=== PATIENT | female | born 1940 | race Two or more races ===

== ENCOUNTER 2017-08-16 17:20 | Inpatient (IN) | payer MEDICARE ==
[~2017-08-16] VITALS: Ht 157.5 cm; Wt 70.3 kg
[~2017-08-16 17:20] MED LIST: ALEN70TA46 PO; AMLO10TA80 PO; BENA20TA3 PO; CHOL400T15 PO
[2017-08-16 17:30] VITALS: BP 126/69
[2017-08-16] MEDS ORDERED: METHYLPREDNISOLONE SOD SUCC 40 MG/ML VIAL IV NR (18:30)
[2017-08-16] MEDS ORDERED: ALPRAZOLAM 0.5 MG TABLET PO PRN (18:30)
[2017-08-16] MEDS ORDERED: IPRATROPIUM/ALBUTEROL 0.5-3(2.5)MG/3ML NEB HHN PRN (18:30)
[2017-08-16] MEDS ORDERED: CLONIDINE 0.1MG TABLET PO PRN (18:30)
[2017-08-16] MEDS ORDERED: ACETAMINOPHEN 325MG TABLET PO PRN (18:30)
[2017-08-16 20:00] VITALS: BP 118/72
[2017-08-16] MEDS: FAMOTIDINE 20MG TABLET PO SCH (20:18)
[2017-08-16] MEDS: IPRATROPIUM/ALBUTEROL 0.5-3(2.5)MG/3ML NEB HHN SCH (21:13)
[2017-08-16] MEDS: BUDESONIDE 0.5MG/2ML NEB HHN SCH (21:13)
[2017-08-16] MEDS ORDERED: AMLO2.5T45 PO (22:21)
[2017-08-16] MEDS ORDERED: CHOL100046 PO (22:21)
[2017-08-17] MEDS: IPRATROPIUM/ALBUTEROL 0.5-3(2.5)MG/3ML NEB HHN SCH ×7 (04:00→23:18)
[2017-08-17 06:38] LABS: HEMATOCRIT. 31.2 % (36.0-48.0); HEMOGLOBIN. 9.9 g/dL (12.0-16.0); MEAN CORPUSCULAR HEMOGLOBIN 22.6 pg (28.0-32.0); MEAN CORPUSCULAR VOLUME 71.2 fL (81.0-99.0); MEAN PLATELET VOLUME 8.8 fl (7.4-10.4); PLATELET 293 x1000/uL (130-400); RED BLOOD CELL COUNT 4.38 mill/uL (4.2-5.4); RED CELL DISTRIBUTION WIDTH 15.9 % (11.6-14.6)
[2017-08-17] MEDS: BUDESONIDE 0.5MG/2ML NEB HHN SCH ×2 (07:47→20:44)
[2017-08-17 08:07] VITALS: BP 122/75
[2017-08-17] MEDS: DOCUSATE SODIUM 100MG CAPSULE PO SCH (08:19)
[2017-08-17 08:50] LABS: CHLORIDE 102 mEq/L (98-107)
[2017-08-17 08:58] LABS: PREALBUMIN 23.2 mg/dL (20.0-40.0)
[2017-08-17] MEDS: BENAZEPRIL 20MG TABLET PO SCH (09:00)
[2017-08-17] MEDS: FAMOTIDINE 20MG TABLET PO SCH ×2 (09:00→20:57)
[2017-08-17] MEDS: ENOXAPARIN 40MG/0.4ML SYR SUBCUT SCH (09:00)
[2017-08-17] MEDS: AMLODIPINE 10MG TABLET PO SCH (09:00)
[2017-08-17] MEDS: PREDNISONE 20MG TABLET PO SCH (09:00)
[2017-08-17 10:23] LABS: PLATELET ESTIMATE NORMAL
[2017-08-17 17:50] LABS: CLARITY URINE CLEAR (CLEAR); COLOR URINE YELLOW (YELLOW); KETONES URINE NEGATIVE (NEGATIVE); LEUKOCYTE ESTERASE URINE 1+ (NEGATIVE); NITRITE URINE NEGATIVE (NEGATIVE); OCCULT BLOOD URINE NEGATIVE (NEGATIVE); PROTEIN URINE NEGATIVE (NEGATIVE); SPECIFIC GRAVITY URINE 1.012 (1.005-1.030); UROBILINOGEN URINE 0.2 E.U./dL (0.2-1.0)
[2017-08-17 20:00] VITALS: BP 135/69
[2017-08-18] MEDS: IPRATROPIUM/ALBUTEROL 0.5-3(2.5)MG/3ML NEB HHN SCH ×4 (03:56→21:21)
[2017-08-18] MEDS: BUDESONIDE 0.5MG/2ML NEB HHN SCH ×2 (07:20→21:20)
[2017-08-18 08:00] VITALS: BP 158/81
[2017-08-18] MEDS: DOCUSATE SODIUM 100MG CAPSULE PO SCH (08:59)
[2017-08-18] MEDS: PREDNISONE 20MG TABLET PO SCH (08:59)
[2017-08-18] MEDS: BENAZEPRIL 20MG TABLET PO SCH (09:00)
[2017-08-18] MEDS: AMLODIPINE 10MG TABLET PO SCH (09:01)
[2017-08-18] MEDS: FAMOTIDINE 20MG TABLET PO SCH ×2 (09:01→21:02)
[2017-08-18] MEDS: ENOXAPARIN 40MG/0.4ML SYR SUBCUT SCH (09:02)
[2017-08-18 20:00] VITALS: BP 109/59
[2017-08-19] MEDS: IPRATROPIUM/ALBUTEROL 0.5-3(2.5)MG/3ML NEB HHN SCH ×6 (01:00→21:58)
[2017-08-19 06:51] LABS: BASOPHILS % 0.1 % (0.0-2.0); EOSINOPHILS % 1.5 % (0.0-5.0); HEMATOCRIT. 31.3 % (36.0-48.0); HEMOGLOBIN. 9.9 g/dL (12.0-16.0); LYMPHOCYTES % 7.7 % (20.0-50.0); MEAN CORPUSCULAR HEMOGLOBIN 22.7 pg (28.0-32.0); MEAN CORPUSCULAR VOLUME 71.7 fL (81.0-99.0); MEAN PLATELET VOLUME 8.5 fl (7.4-10.4); MONOCYTES % 4.4 % (2.0-8.0); NEUTROPHILS % 86.3 % (40.0-76.0); PLATELET 257 x1000/uL (130-400); RED BLOOD CELL COUNT 4.37 mill/uL (4.2-5.4); RED CELL DISTRIBUTION WIDTH 16.6 % (11.6-14.6)
[2017-08-19 07:23] LABS: CHLORIDE 104 mEq/L (98-107)
[2017-08-19 07:39] LABS: PHOSPHORUS 2.7 mg/dL (2.5-4.9); TOTAL IRON BINDING CAPACITY 158 ug/dL (250-450)
[2017-08-19] MEDS: BUDESONIDE 0.5MG/2ML NEB HHN SCH (07:52)
[2017-08-19 08:08] VITALS: BP 126/60
[2017-08-19] MEDS: PREDNISONE 20MG TABLET PO SCH (08:23)
[2017-08-19] MEDS: BENAZEPRIL 20MG TABLET PO SCH (08:24)
[2017-08-19] MEDS: FAMOTIDINE 20MG TABLET PO SCH ×2 (08:24→21:23)
[2017-08-19] MEDS: DOCUSATE SODIUM 100MG CAPSULE PO SCH (08:24)
[2017-08-19] MEDS: AMLODIPINE 10MG TABLET PO SCH (08:24)
[2017-08-19] MEDS: ENOXAPARIN 40MG/0.4ML SYR SUBCUT SCH (08:25)
[2017-08-19 15:19] LABS: FOLIC ACID (FOLATE) SERUM 9.9 ng/mL (>5.38)
[2017-08-20] MEDS: IPRATROPIUM/ALBUTEROL 0.5-3(2.5)MG/3ML NEB HHN SCH ×6 (01:09→21:41)
[2017-08-20 08:00] VITALS: BP 107/48
[2017-08-20] MEDS: FAMOTIDINE 20MG TABLET PO SCH ×2 (08:15→20:22)
[2017-08-20] MEDS: PREDNISONE 20MG TABLET PO SCH (08:15)
[2017-08-20] MEDS: DOCUSATE SODIUM 100MG CAPSULE PO SCH (08:15)
[2017-08-20] MEDS: ENOXAPARIN 40MG/0.4ML SYR SUBCUT SCH (08:15)
[2017-08-20] MEDS: BENAZEPRIL 20MG TABLET PO SCH (08:20)
[2017-08-20] MEDS: AMLODIPINE 10MG TABLET PO SCH (08:21)
[2017-08-20] MEDS: BUDESONIDE 0.5MG/2ML NEB HHN SCH ×2 (09:37→21:40)
[2017-08-20] MEDS ORDERED: POTASSIUM CHLORIDE 20MEQ TABLET SR PO SCH (10:30)
[2017-08-20 20:36] VITALS: BP 102/50
[2017-08-21] MEDS: IPRATROPIUM/ALBUTEROL 0.5-3(2.5)MG/3ML NEB HHN SCH ×5 (03:50→20:51)
[2017-08-21 07:04] LABS: BASOPHILS % 0.6 % (0.0-2.0); EOSINOPHILS % 2.4 % (0.0-5.0); HEMOGLOBIN. 9.6 g/dL (12.0-16.0); LYMPHOCYTES % 9.7 % (20.0-50.0); MEAN CORPUSCULAR HEMOGLOBIN 22.4 pg (28.0-32.0); MEAN PLATELET VOLUME 8.4 fl (7.4-10.4); MONOCYTES % 5.1 % (2.0-8.0); NEUTROPHILS % 82.2 % (40.0-76.0); PLATELET 232 x1000/uL (130-400); RED CELL DISTRIBUTION WIDTH 16.5 % (11.6-14.6)
[2017-08-21] MEDS: BUDESONIDE 0.5MG/2ML NEB HHN SCH ×2 (07:13→20:52)
[2017-08-21 07:33] LABS: CHLORIDE 106 mEq/L (98-107)
[2017-08-21 08:00] VITALS: BP 134/61
[2017-08-21] MEDS: DOCUSATE SODIUM 100MG CAPSULE PO SCH (09:48)
[2017-08-21] MEDS: PREDNISONE 20MG TABLET PO SCH (09:48)
[2017-08-21] MEDS: FAMOTIDINE 20MG TABLET PO SCH ×2 (09:48→21:42)
[2017-08-21] MEDS: BENAZEPRIL 20MG TABLET PO SCH (09:50)
[2017-08-21] MEDS: ENOXAPARIN 40MG/0.4ML SYR SUBCUT SCH (09:50)
[2017-08-21] MEDS: AMLODIPINE 10MG TABLET PO SCH (09:51)
[2017-08-21 20:00] VITALS: BP 100/52
[2017-08-22] MEDS: IPRATROPIUM/ALBUTEROL 0.5-3(2.5)MG/3ML NEB HHN SCH ×6 (01:02→21:21)
[2017-08-22 08:00] VITALS: BP 109/56
[2017-08-22] MEDS: PREDNISONE 20MG TABLET PO SCH (08:40)
[2017-08-22] MEDS: BENAZEPRIL 20MG TABLET PO SCH (08:40)
[2017-08-22] MEDS: ENOXAPARIN 40MG/0.4ML SYR SUBCUT SCH (08:40)
[2017-08-22] MEDS: AMLODIPINE 10MG TABLET PO SCH (08:40)
[2017-08-22] MEDS: DOCUSATE SODIUM 100MG CAPSULE PO SCH (08:40)
[2017-08-22] MEDS: FAMOTIDINE 20MG TABLET PO SCH ×2 (08:40→20:56)
[2017-08-22] MEDS: BUDESONIDE 0.5MG/2ML NEB HHN SCH ×2 (11:48→21:21)
[2017-08-22 20:00] VITALS: BP 150/72
[2017-08-23] MEDS: IPRATROPIUM/ALBUTEROL 0.5-3(2.5)MG/3ML NEB HHN SCH ×5 (01:00→20:25)
[2017-08-23 06:43] LABS: BASOPHILS % 0.5 % (0.0-2.0); EOSINOPHILS % 2.7 % (0.0-5.0); HEMATOCRIT. 28.3 % (36.0-48.0); HEMOGLOBIN. 8.9 g/dL (12.0-16.0); LYMPHOCYTES % 12.4 % (20.0-50.0); MEAN CORPUSCULAR HEMOGLOBIN 22.9 pg (28.0-32.0); MEAN CORPUSCULAR VOLUME 72.4 fL (81.0-99.0); MEAN PLATELET VOLUME 8.8 fl (7.4-10.4); MONOCYTES % 5.4 % (2.0-8.0); PLATELET 190 x1000/uL (130-400); RED CELL DISTRIBUTION WIDTH 17.5 % (11.6-14.6)
[2017-08-23 07:50] LABS: CHLORIDE 105 mEq/L (98-107)
[2017-08-23 08:00] VITALS: BP 124/69
[2017-08-23] MEDS: DOCUSATE SODIUM 100MG CAPSULE PO SCH (08:35)
[2017-08-23] MEDS: PREDNISONE 20MG TABLET PO SCH (08:35)
[2017-08-23] MEDS: FAMOTIDINE 20MG TABLET PO SCH ×2 (08:35→21:33)
[2017-08-23] MEDS: BENAZEPRIL 20MG TABLET PO SCH (08:35)
[2017-08-23] MEDS: AMLODIPINE 10MG TABLET PO SCH (08:35)
[2017-08-23] MEDS: ENOXAPARIN 40MG/0.4ML SYR SUBCUT SCH (08:36)
[2017-08-23 10:11] LABS: 25-HYDROXY VITAMIN D3 18 ng/mL (.)
[2017-08-23] MEDS: BUDESONIDE 0.5MG/2ML NEB HHN SCH ×2 (11:22→20:25)
[2017-08-23] MEDS ORDERED: ERGOCALCIFEROL 50000UNITS CAPSULE PO SCH (16:30)
[2017-08-23 20:00] VITALS: BP 114/57
[2017-08-24] MEDS: IPRATROPIUM/ALBUTEROL 0.5-3(2.5)MG/3ML NEB HHN SCH ×6 (00:19→21:20)
[2017-08-24] MEDS: BUDESONIDE 0.5MG/2ML NEB HHN SCH ×2 (07:35→21:20)
[2017-08-24 08:00] VITALS: BP 133/78
[2017-08-24] MEDS: PREDNISONE 20MG TABLET PO SCH (08:26)
[2017-08-24] MEDS: DOCUSATE SODIUM 100MG CAPSULE PO SCH (08:26)
[2017-08-24] MEDS: ENOXAPARIN 40MG/0.4ML SYR SUBCUT SCH (08:27)
[2017-08-24] MEDS: BENAZEPRIL 20MG TABLET PO SCH (08:27)
[2017-08-24] MEDS: AMLODIPINE 10MG TABLET PO SCH (08:27)
[2017-08-24] MEDS: FAMOTIDINE 20MG TABLET PO SCH ×2 (08:27→20:33)
[2017-08-24 20:00] VITALS: BP 110/61
[2017-08-25] MEDS: IPRATROPIUM/ALBUTEROL 0.5-3(2.5)MG/3ML NEB HHN SCH ×6 (00:01→21:50)
[2017-08-25] MEDS: BUDESONIDE 0.5MG/2ML NEB HHN SCH ×2 (07:07→21:51)
[2017-08-25 08:00] VITALS: BP 119/66
[2017-08-25] MEDS: DOCUSATE SODIUM 100MG CAPSULE PO SCH (09:10)
[2017-08-25] MEDS: AMLODIPINE 10MG TABLET PO SCH (09:10)
[2017-08-25] MEDS: PREDNISONE 20MG TABLET PO SCH (09:10)
[2017-08-25] MEDS: FAMOTIDINE 20MG TABLET PO SCH ×2 (09:10→21:20)
[2017-08-25] MEDS: ENOXAPARIN 40MG/0.4ML SYR SUBCUT SCH (09:11)
[2017-08-25] MEDS: BENAZEPRIL 20MG TABLET PO SCH (09:11)
[2017-08-25 20:00] VITALS: BP 110/52
[2017-08-26] MEDS: IPRATROPIUM/ALBUTEROL 0.5-3(2.5)MG/3ML NEB HHN SCH ×7 (01:12→23:35)
[2017-08-26 08:02] VITALS: BP 106/54
[2017-08-26 08:19] LABS: BASOPHILS % 0.7 % (0.0-2.0); EOSINOPHILS % 2.5 % (0.0-5.0); HEMOGLOBIN. 8.7 g/dL (12.0-16.0); LYMPHOCYTES % 18.5 % (20.0-50.0); MEAN CORPUSCULAR HEMOGLOBIN 22.6 pg (28.0-32.0); MEAN CORPUSCULAR VOLUME 72.1 fL (81.0-99.0); MEAN PLATELET VOLUME 8.4 fl (7.4-10.4); MONOCYTES % 6.5 % (2.0-8.0); NEUTROPHILS % 71.8 % (40.0-76.0); PLATELET 182 x1000/uL (130-400); RED BLOOD CELL COUNT 3.88 mill/uL (4.2-5.4); RED CELL DISTRIBUTION WIDTH 17.5 % (11.6-14.6)
[2017-08-26] MEDS: DOCUSATE SODIUM 100MG CAPSULE PO SCH (08:49)
[2017-08-26] MEDS: FAMOTIDINE 20MG TABLET PO SCH ×2 (08:49→20:05)
[2017-08-26] MEDS: PREDNISONE 10MG TABLET PO SCH (08:49)
[2017-08-26] MEDS: ENOXAPARIN 40MG/0.4ML SYR SUBCUT SCH (08:50)
[2017-08-26] MEDS: BUDESONIDE 0.5MG/2ML NEB HHN SCH ×2 (08:59→19:49)
[2017-08-26] MEDS: BENAZEPRIL 20MG TABLET PO SCH (09:00)
[2017-08-26] MEDS: AMLODIPINE 10MG TABLET PO SCH (09:00)
[2017-08-26 09:02] LABS: CHLORIDE 103 mEq/L (98-107)
[2017-08-26 19:56] VITALS: BP 115/66
[2017-08-27] MEDS: IPRATROPIUM/ALBUTEROL 0.5-3(2.5)MG/3ML NEB HHN SCH ×5 (03:52→21:17)
[2017-08-27 06:58] LABS: BASOPHILS % 0.6 % (0.0-2.0); EOSINOPHILS % 2.4 % (0.0-5.0); HEMATOCRIT. 30.2 % (36.0-48.0); HEMOGLOBIN. 9.4 g/dL (12.0-16.0); LYMPHOCYTES % 23.3 % (20.0-50.0); MEAN CORPUSCULAR HEMOGLOBIN 22.6 pg (28.0-32.0); MEAN CORPUSCULAR VOLUME 72.5 fL (81.0-99.0); MEAN PLATELET VOLUME 8.7 fl (7.4-10.4); NEUTROPHILS % 67.7 % (40.0-76.0); PLATELET 187 x1000/uL (130-400); RED BLOOD CELL COUNT 4.17 mill/uL (4.2-5.4); RED CELL DISTRIBUTION WIDTH 17.9 % (11.6-14.6)
[2017-08-27 07:56] VITALS: BP 114/54
[2017-08-27 08:09] LABS: CHLORIDE 101 mEq/L (98-107)
[2017-08-27] MEDS: ENOXAPARIN 40MG/0.4ML SYR SUBCUT SCH (08:17)
[2017-08-27] MEDS: AMLODIPINE 10MG TABLET PO SCH (08:17)
[2017-08-27] MEDS: FAMOTIDINE 20MG TABLET PO SCH ×2 (08:17→21:01)
[2017-08-27] MEDS: DOCUSATE SODIUM 100MG CAPSULE PO SCH (08:17)
[2017-08-27] MEDS: PREDNISONE 10MG TABLET PO SCH (08:17)
[2017-08-27] MEDS: BENAZEPRIL 20MG TABLET PO SCH (08:18)
[2017-08-27] MEDS: BUDESONIDE 0.5MG/2ML NEB HHN SCH ×2 (09:30→21:17)
[2017-08-27 20:00] VITALS: BP 127/75
[2017-08-28] MEDS: IPRATROPIUM/ALBUTEROL 0.5-3(2.5)MG/3ML NEB HHN SCH ×7 (00:31→23:47)
[2017-08-28 07:00] VITALS: BP 126/73
[2017-08-28] MEDS: BUDESONIDE 0.5MG/2ML NEB HHN SCH ×2 (08:12→19:57)
[2017-08-28] MEDS: DOCUSATE SODIUM 100MG CAPSULE PO SCH (08:55)
[2017-08-28] MEDS: ENOXAPARIN 40MG/0.4ML SYR SUBCUT SCH (08:55)
[2017-08-28] MEDS: BENAZEPRIL 20MG TABLET PO SCH (08:55)
[2017-08-28] MEDS: AMLODIPINE 10MG TABLET PO SCH (08:56)
[2017-08-28] MEDS: FAMOTIDINE 20MG TABLET PO SCH ×2 (08:56→21:04)
[2017-08-28 20:00] VITALS: BP 119/69
[2017-08-29] MEDS: IPRATROPIUM/ALBUTEROL 0.5-3(2.5)MG/3ML NEB HHN SCH ×3 (04:58→11:53)
[2017-08-29 07:00] VITALS: BP 127/74
[2017-08-29] MEDS: BUDESONIDE 0.5MG/2ML NEB HHN SCH (07:38)
[2017-08-29] MEDS: DOCUSATE SODIUM 100MG CAPSULE PO SCH (08:47)
[2017-08-29] MEDS: BENAZEPRIL 20MG TABLET PO SCH (08:47)
[2017-08-29] MEDS: ENOXAPARIN 40MG/0.4ML SYR SUBCUT SCH (08:47)
[2017-08-29] MEDS: FAMOTIDINE 20MG TABLET PO SCH (08:47)
[2017-08-29] MEDS: AMLODIPINE 10MG TABLET PO SCH (08:48)
[2017-08-29 11:23] VITALS: BP 111/72
[2017-08-29 11:24] VITALS: BP 111/72
== END 2017-08-29 16:00 | disposition home health service (06) | DRG 70 ==
PROVIDERS: ADMIT Physical Medicine & Rehabilitation Spinal Cord Injury Medicine; ATTEND Internal Medicine
DX: G93.40 Encephalopathy, unspecified (principal); A41.52 Sepsis due to Pseudomonas; J96.90 Respiratory failure, unspecified, unspecified whether with hypoxia or hypercapnia; J18.9 Pneumonia, unspecified organism; J44.1 Chronic obstructive pulmonary disease with (acute) exacerbation; E44.0 Moderate protein-calorie malnutrition; E87.0 Hyperosmolality and hypernatremia; J45.901 Unspecified asthma with (acute) exacerbation; K56.7 Ileus, unspecified; Z99.81 Dependence on supplemental oxygen; D64.9 Anemia, unspecified; E05.00 Thyrotoxicosis with diffuse goiter without thyrotoxic crisis or storm; D72.829 Elevated white blood cell count, unspecified; R41.3 Other amnesia; R26.9 Unspecified abnormalities of gait and mobility; Z87.891 Personal history of nicotine dependence; Z68.28 Body mass index [BMI] 28.0-28.9, adult; Z82.0 Family history of epilepsy and other diseases of the nervous system; R53.81 Other malaise; F41.9 Anxiety disorder, unspecified; I10 Essential (primary) hypertension; E55.9 Vitamin D deficiency, unspecified; F32.9 Major depressive disorder, single episode, unspecified; F06.31 Mood disorder due to known physiological condition with depressive features
CPT/HCPCS: 36415; 80048; 80053; 81003; 82270; 82306; 82607; 82728; 82746; 83540; 83550; 83735; 84100; 84134; 84443; 84630; 85025; 87086; 92523; 92610; 93970; 94618; 94640; 97110; 97112; 97116; 97162; 97166; 97530; 97535; G0515; J1650; J2920; J7512; J7620; J7626

== ENCOUNTER 2019-12-22 14:32 | Inpatient (IN) | payer MEDICARE ==
[~2019-12-22] VITALS: Ht 157.5 cm; Wt 49.0 kg
[~2019-12-22 14:32] MED LIST changes: -ALEN70TA46 PO; -AMLO10TA80 PO; +AMLO2.5T45 PO; -BENA20TA3 PO; +CHOL100046 PO; -CHOL400T15 PO
[2019-12-22] MEDS ORDERED: METHYLPREDNISOLONE SOD SUCC 125 MG/2 ML VIAL IV STA (14:39)
[2019-12-22] MEDS ORDERED: IPRATROPIUM BROMIDE (0.02%) 0.5MG/2.5ML NEB HHN STA (14:39)
[2019-12-22] MEDS ORDERED: MAGNESIUM 2 G PREMIX 50 ML IV ONE (14:45)
[2019-12-22] MEDS: ALBUTEROL (0.083%) 2.5MG/3ML NEB HHN SCH ×3 (14:50→16:10)
[2019-12-22 15:05] LABS: BG BASE EXCESS 15.6 mmol/L (-2.0-2.0); BG BILEVEL POS AIRWAY PRESSURE 15/5; BG CARBOXYHEMOGLOBIN 0.1 % (0.5-1.5); BG DEOXYHEMOGLOBIN 1.2 % (0.0-5.0); BG HCO3 ACT 47.4 mmol/L (22.0-26.0); BG METHEMOGLOBIN 0.3 % (0.0-1.5); BG OXYGEN SATURATION 98.8 % (92.0-98.5); BG OXYHEMOGLOBIN 98.4 % (94.0-97.0); BG PCO2 124.7 mmHg (35.0-45.0); BG PH 7.198 (7.350-7.450); BG PO2 160.7 mmHg (75.0-100.0); BG SAMPLE SITE RIGHT BRACHIAL; BG TOTAL HEMOGLOBIN 10.1 g/dL (12.0-18.0); BG VENT MODE MASK - BIPAP; BG VENT RATE 16 set
[2019-12-22 15:40] LABS: BASOPHILS % 0.6 % (0.0-2.0); EOSINOPHILS % 0.1 % (0.0-5.0); HEMATOCRIT. 31.2 % (36.0-48.0); HEMOGLOBIN. 9.5 g/dL (12.0-16.0); LYMPHOCYTES % 12.9 % (20.0-50.0); MEAN CORPUSCULAR HEMOGLOBIN 23.3 pg (28.0-32.0); MEAN CORPUSCULAR VOLUME 76.8 fL (81.0-99.0); MEAN PLATELET VOLUME 8.7 fl (7.4-10.4); MONOCYTES % 3.5 % (2.0-8.0); NEUTROPHILS % 82.9 % (40.0-76.0); PLATELET 159 x1000/uL (130-400); RED BLOOD CELL COUNT 4.07 mill/uL (4.2-5.4); RED CELL DISTRIBUTION WIDTH 17.6 % (11.6-14.6)
[2019-12-22 15:43] LABS: CHLORIDE 108 mEq/L (98-107)
[2019-12-22 15:47] LABS: PROTHROMBIN TIME 10.5 sec (9.6-11.0)
[2019-12-22] MEDS ORDERED: AZITHROMYCIN 500 MG in DEXT 5% WATER 250 ML IV SCH (16:15)
[2019-12-22] MEDS ORDERED: PIPERACILLIN/TAZ 3.375G PREMIX 50 ML IV ONE (16:15)
[2019-12-22] MEDS ORDERED: VANCOMYCIN 1 G PREMIX 200 ML IV SCH (16:15)
[2019-12-22 17:45] LABS: BG BASE EXCESS 12.7 mmol/L (-2.0-2.0); BG BILEVEL POS AIRWAY PRESSURE 20/5; BG CARBOXYHEMOGLOBIN 0.3 % (0.5-1.5); BG DEOXYHEMOGLOBIN 11.2 % (0.0-5.0); BG METHEMOGLOBIN 0.2 % (0.0-1.5); BG OXYGEN SATURATION 88.7 % (92.0-98.5); BG OXYHEMOGLOBIN 88.3 % (94.0-97.0); BG PCO2 90.9 mmHg (35.0-45.0); BG PH 7.283 (7.350-7.450); BG PO2 58.4 mmHg (75.0-100.0); BG SAMPLE SITE LEFT RADIAL; BG TOTAL HEMOGLOBIN 9.9 g/dL (12.0-18.0); BG VENT MODE MASK - BIPAP; BG VENT RATE 20 set
[2019-12-22 19:00] VITALS: BP 138/88
[2019-12-22 20:00] VITALS: BP_SYST 99; BP_DIAS 59; BP_DIAS 62
[2019-12-22] MEDS ORDERED: PIPERACILLIN/TAZ 3.375G PREMIX 50 ML IV SCH (20:15)
[2019-12-22] MEDS ORDERED: CLONIDINE 0.1MG TABLET PO PRN (20:15)
[2019-12-22] MEDS ORDERED: MAGNESIUM/ALUMINUM HYDROXIDE/SIMETHICONE 30ML UDC PO PRN (20:15)
[2019-12-22] MEDS ORDERED: MAGNESIUM HYDROXIDE 400MG/5ML 30ML UDC PO PRN (20:15)
[2019-12-22] MEDS ORDERED: ACETAMINOPHEN 325MG TABLET PO PRN ×2 (20:15)
[2019-12-22] MEDS ORDERED: HYDRALAZINE 20MG/ML VIAL IV PRN (20:15)
[2019-12-22] MEDS ORDERED: GUAIFENESIN 200MG/10ML SUGAR FREE UDC PO PRN (20:15)
[2019-12-22 21:00] VITALS: BP 99/56
[2019-12-22] MEDS: FAMOTIDINE 20MG/2ML VIAL IV SCH (21:00)
[2019-12-22] MEDS: IPRATROPIUM/ALBUTEROL 0.5-3(2.5)MG/3ML NEB HHN SCH (21:53)
[2019-12-22 22:00] VITALS: BP 118/73
[2019-12-22] MEDS: METHYLPREDNISOLONE SOD SUCC 125 MG/2 ML VIAL IV SCH (22:11)
[2019-12-22 22:51] LABS: BG BASE EXCESS 11.6 mmol/L (-2.0-2.0); BG BILEVEL POS AIRWAY PRESSURE 15/20; BG CARBOXYHEMOGLOBIN 0.3 % (0.5-1.5); BG FRACTION INSPIRED OXYGEN 40; BG HCO3 ACT 39.3 mmol/L (22.0-26.0); BG METHEMOGLOBIN 0.4 % (0.0-1.5); BG OXYHEMOGLOBIN 98.3 % (94.0-97.0); BG PH 7.337 (7.350-7.450); BG SAMPLE SITE RIGHT RADIAL; BG TOTAL HEMOGLOBIN 8.9 g/dL (12.0-18.0); BG VENT MODE MASK - BIPAP; BG VENT RATE 20 set
[2019-12-22 23:00] VITALS: BP 106/64
[2019-12-22 23:57] VITALS: BP 125/82
[2019-12-23] VITALS (13 sets, daily range): BP systolic 101–167; BP diastolic 34–104
[2019-12-23] MEDS ORDERED: TEMAZEPAM 15MG CAPSULE PO PRN
[2019-12-23] MEDS: DEXT 5% WATER + KCL 20MEQ/L 1,000 ML IV SCH ×3 (00:01→22:59)
[2019-12-23] MEDS: IPRATROPIUM/ALBUTEROL 0.5-3(2.5)MG/3ML NEB HHN SCH ×6 (01:22→20:42)
[2019-12-23] MEDS: PIPERACILLIN/TAZOBACTAM 3.375 G in DEXT 5% WATER 100 ML IV SCH ×3 (05:38→21:42)
[2019-12-23] MEDS: METHYLPREDNISOLONE SOD SUCC 125 MG/2 ML VIAL IV SCH ×3 (05:39→21:41)
[2019-12-23 07:03] LABS: BASOPHILS % 0.2 % (0.0-2.0); HEMATOCRIT. 27.9 % (36.0-48.0); HEMOGLOBIN. 8.7 g/dL (12.0-16.0); LYMPHOCYTES % 9.3 % (20.0-50.0); MEAN CORPUSCULAR HEMOGLOBIN 23.4 pg (28.0-32.0); MEAN PLATELET VOLUME 9.4 fl (7.4-10.4); MONOCYTES % 2.7 % (2.0-8.0); NEUTROPHILS % 87.8 % (40.0-76.0); PLATELET 162 x1000/uL (130-400); RED BLOOD CELL COUNT 3.72 mill/uL (4.2-5.4); RED CELL DISTRIBUTION WIDTH 17.5 % (11.6-14.6)
[2019-12-23 07:40] LABS: CHLORIDE 102 mEq/L (98-107)
[2019-12-23 07:46] LABS: PHOSPHORUS 3.1 mg/dL (2.5-4.9)
[2019-12-23] MEDS: FAMOTIDINE 20MG/2ML VIAL IV SCH ×2 (08:18→21:41)
[2019-12-23] MEDS: ENOXAPARIN 40MG/0.4ML SYR SUBCUT SCH (08:18)
[2019-12-23 09:21] LABS: BG BASE EXCESS 10.9 mmol/L (-2.0-2.0); BG BILEVEL POS AIRWAY PRESSURE ST=15/5; BG CARBOXYHEMOGLOBIN 0.2 % (0.5-1.5); BG FRACTION INSPIRED OXYGEN 35; BG HCO3 ACT 38.2 mmol/L (22.0-26.0); BG METHEMOGLOBIN 0.3 % (0.0-1.5); BG OXYHEMOGLOBIN 95.5 % (94.0-97.0); BG PCO2 68.3 mmHg (35.0-45.0); BG PH 7.365 (7.350-7.450); BG PO2 80.5 mmHg (75.0-100.0); BG PRESSURE SUPPORT 10; BG SAMPLE SITE RIGHT RADIAL; BG TOTAL HEMOGLOBIN 9.6 g/dL (12.0-18.0); BG VENT MODE MASK - BIPAP; BG VENT RATE 20 set
[2019-12-23 17:51] LABS: T4 FREE 0.78 ng/dL (0.76-1.46)
[2019-12-23] MEDS: DILTIAZEM HCL 60MG TABLET PO SCH (21:42)
[2019-12-23] MEDS: ONDANSETRON HCL 4MG/2ML INJ IV PRN (23:52)
[2019-12-23] MEDS: DIPHENHYDRAMINE 50MG/ML VIAL IV PRN (23:52)
[2019-12-24] VITALS (13 sets, daily range): BP systolic 106–166; BP diastolic 49–104
[2019-12-24] MEDS: IPRATROPIUM/ALBUTEROL 0.5-3(2.5)MG/3ML NEB HHN SCH ×5 (00:39→15:44)
[2019-12-24] MEDS: PIPERACILLIN/TAZOBACTAM 3.375 G in DEXT 5% WATER 100 ML IV SCH ×3 (05:24→21:34)
[2019-12-24] MEDS: METHYLPREDNISOLONE SOD SUCC 125 MG/2 ML VIAL IV SCH ×2 (05:24→13:12)
[2019-12-24] MEDS: DILTIAZEM HCL 60MG TABLET PO SCH ×3 (05:25→21:33)
[2019-12-24] MEDS: FAMOTIDINE 20MG/2ML VIAL IV SCH (08:56)
[2019-12-24] MEDS: ENOXAPARIN 40MG/0.4ML SYR SUBCUT SCH (08:57)
[2019-12-24] MEDS ORDERED: ALPRAZOLAM 0.25 MG TABLET PO PRN (09:30)
[2019-12-24] MEDS: METHYLPREDNISOLONE SOD SUCC 40 MG/ML VIAL IV SCH (17:52)
[2019-12-24] MEDS: OMEPRAZOLE 20MG CAPSULE EXTENDED RELEASE PO SCH (21:30)
[2019-12-25] VITALS (12 sets, daily range): BP systolic 107–148; BP diastolic 48–101
[2019-12-25] MEDS: IPRATROPIUM/ALBUTEROL 0.5-3(2.5)MG/3ML NEB HHN SCH ×8 (00:06→23:31)
[2019-12-25] MEDS: DILTIAZEM HCL 60MG TABLET PO SCH ×2 (06:00→13:10)
[2019-12-25] MEDS: PIPERACILLIN/TAZOBACTAM 3.375 G in DEXT 5% WATER 100 ML IV SCH ×2 (06:25→13:09)
[2019-12-25] MEDS: METHYLPREDNISOLONE SOD SUCC 40 MG/ML VIAL IV SCH ×2 (08:21→17:52)
[2019-12-25] MEDS: ENOXAPARIN 40MG/0.4ML SYR SUBCUT SCH (08:21)
[2019-12-25] MEDS: OMEPRAZOLE 20MG CAPSULE EXTENDED RELEASE PO SCH (08:22)
[2019-12-25] MEDS ORDERED: DILTIAZEM HCL 5MG/ML 5ML VIAL IV NR (15:00)
[2019-12-25] MEDS: DILTIAZEM HCL 120MG CAPSULE CD 24HR PO SCH (21:57)
[2019-12-25] MEDS: DIPHENHYDRAMINE 50MG/ML VIAL IV PRN (22:05)
[2019-12-25] MEDS: PIPERACILLIN/TAZOBACTAM 2.25 G in DEXTROSE 5% WATER 50 ML IV SCH (22:05)
[2019-12-25] MEDS: ONDANSETRON HCL 4MG/2ML INJ IV PRN (22:05)
[2019-12-26] VITALS (12 sets, daily range): BP systolic 115–152; BP diastolic 71–102
[2019-12-26] MEDS: PIPERACILLIN/TAZOBACTAM 2.25 G in DEXTROSE 5% WATER 50 ML IV SCH ×4 (02:18→20:30)
[2019-12-26] MEDS: IPRATROPIUM/ALBUTEROL 0.5-3(2.5)MG/3ML NEB HHN SCH ×3 (03:47→12:40)
[2019-12-26 05:59] LABS: HEMATOCRIT. 31.2 % (36.0-48.0); HEMOGLOBIN. 9.6 g/dL (12.0-16.0); MEAN CORPUSCULAR HEMOGLOBIN 23.3 pg (28.0-32.0); MEAN CORPUSCULAR VOLUME 76.2 fL (81.0-99.0); MEAN PLATELET VOLUME 9.5 fl (7.4-10.4); PLATELET 218 x1000/uL (130-400); RED CELL DISTRIBUTION WIDTH 17.9 % (11.6-14.6)
[2019-12-26 06:44] LABS: VITAMIN B12 SERUM 450 pg/mL (211-911)
[2019-12-26] MEDS: ENOXAPARIN 40MG/0.4ML SYR SUBCUT SCH (08:13)
[2019-12-26] MEDS: FAMOTIDINE 20MG TABLET PO SCH (08:13)
[2019-12-26] MEDS: DILTIAZEM HCL 120MG CAPSULE CD 24HR PO SCH ×2 (08:14→20:31)
[2019-12-26] MEDS: METHYLPREDNISOLONE SOD SUCC 40 MG/ML VIAL IV SCH (08:15)
[2019-12-26 11:39] LABS: PLATELET ESTIMATE NORMAL
[2019-12-26] MEDS ORDERED: DILTIAZEM HCL 5MG/ML 5ML VIAL IV NR (12:00)
[2019-12-26] MEDS: ENOXAPARIN 60MG/0.6ML SYR SUBCUT SCH (20:32)
[2019-12-26] MEDS: DIPHENHYDRAMINE 50MG/ML VIAL IV PRN (20:53)
[2019-12-26] MEDS: BUDESONIDE 0.5MG/2ML NEB HHN SCH (21:09)
[2019-12-26] MEDS: IPRATROPIUM BROMIDE (0.02%) 0.5MG/2.5ML NEB HHN SCH ×2 (21:09→23:51)
[2019-12-26] MEDS: DILTIAZEM HCL 5MG/ML 5ML VIAL IV PRN (23:00)
[2019-12-27] VITALS (13 sets, daily range): BP systolic 107–148; BP diastolic 62–91
[2019-12-27] MEDS: PIPERACILLIN/TAZOBACTAM 2.25 G in DEXTROSE 5% WATER 50 ML IV SCH ×4 (01:29→20:32)
[2019-12-27] MEDS: BUDESONIDE 0.5MG/2ML NEB HHN SCH ×2 (04:19→15:50)
[2019-12-27] MEDS: PREDNISONE 20MG TABLET PO SCH (08:20)
[2019-12-27] MEDS: DILTIAZEM HCL 120MG CAPSULE CD 24HR PO SCH (08:20)
[2019-12-27] MEDS: FAMOTIDINE 20MG TABLET PO SCH (08:20)
[2019-12-27] MEDS: ENOXAPARIN 60MG/0.6ML SYR SUBCUT SCH ×2 (08:21→20:32)
[2019-12-27] MEDS: IPRATROPIUM BROMIDE (0.02%) 0.5MG/2.5ML NEB HHN SCH ×3 (08:45→20:31)
[2019-12-27] MEDS: IPRATROPIUM/ALBUTEROL 0.5-3(2.5)MG/3ML NEB NEB PRN (15:50)
[2019-12-27] MEDS: FUROSEMIDE 40MG/4ML VIAL IVP SCH ×2 (16:37→20:32)
[2019-12-27 19:19] LABS: HEMOGLOBIN. 10.4 g/dL (12.0-16.0); MEAN CORPUSCULAR HEMOGLOBIN 23.2 pg (28.0-32.0); MEAN CORPUSCULAR VOLUME 75.6 fL (81.0-99.0); MEAN PLATELET VOLUME 9.3 fl (7.4-10.4); PLATELET 254 x1000/uL (130-400); RED CELL DISTRIBUTION WIDTH 18.5 % (11.6-14.6)
[2019-12-27 19:29] LABS: CHLORIDE 99 mEq/L (98-107)
[2019-12-27] MEDS: DILTIAZEM HCL 180MG CAPSULE CD 24HR PO SCH (20:31)
[2019-12-27 20:45] LABS: PLATELET ESTIMATE NORMAL
[2019-12-28] VITALS (11 sets, daily range): BP systolic 112–135; BP diastolic 67–89
[2019-12-28] MEDS: IPRATROPIUM BROMIDE (0.02%) 0.5MG/2.5ML NEB HHN SCH ×3 (01:00→20:15)
[2019-12-28] MEDS: FUROSEMIDE 40MG/4ML VIAL IVP SCH ×2 (06:14→18:49)
[2019-12-28] MEDS: BUDESONIDE 0.5MG/2ML NEB HHN SCH ×2 (08:15→20:15)
[2019-12-28] MEDS: FAMOTIDINE 20MG TABLET PO SCH (08:57)
[2019-12-28] MEDS: PREDNISONE 20MG TABLET PO SCH (08:57)
[2019-12-28] MEDS: ENOXAPARIN 60MG/0.6ML SYR SUBCUT SCH ×2 (08:57→21:04)
[2019-12-28] MEDS: DILTIAZEM HCL 180MG CAPSULE CD 24HR PO SCH ×2 (08:57→21:03)
[2019-12-28] MEDS: DILTIAZEM HCL 5MG/ML 5ML VIAL IV PRN (11:09)
[2019-12-28] MEDS ORDERED: DIGOXIN 500MCG/2ML AMP IV NR (12:14)
[2019-12-28] MEDS ORDERED: ACETAZOLAMIDE SODIUM 500MG/VIAL IV NR (14:00)
[2019-12-28] MEDS: ATENOLOL 50 MG TABLET PO SCH (21:03)
[2019-12-29] VITALS (12 sets, daily range): BP systolic 108–132; BP diastolic 63–90
[2019-12-29] MEDS: IPRATROPIUM BROMIDE (0.02%) 0.5MG/2.5ML NEB HHN SCH ×4 (00:10→21:25)
[2019-12-29 05:38] LABS: BASOPHILS % 0.1 % (0.0-2.0); EOSINOPHILS % 0.2 % (0.0-5.0); HEMATOCRIT. 31.9 % (36.0-48.0); HEMOGLOBIN. 10.2 g/dL (12.0-16.0); LYMPHOCYTES % 9.3 % (20.0-50.0); MEAN CORPUSCULAR HEMOGLOBIN 23.4 pg (28.0-32.0); MEAN CORPUSCULAR VOLUME 73.3 fL (81.0-99.0); MEAN PLATELET VOLUME 8.7 fl (7.4-10.4); MONOCYTES % 7.3 % (2.0-8.0); NEUTROPHILS % 83.1 % (40.0-76.0); PLATELET 254 x1000/uL (130-400); RED BLOOD CELL COUNT 4.35 mill/uL (4.2-5.4); RED CELL DISTRIBUTION WIDTH 17.5 % (11.6-14.6)
[2019-12-29 05:49] LABS: CHLORIDE 99 mEq/L (98-107)
[2019-12-29] MEDS: FUROSEMIDE 40MG/4ML VIAL IVP SCH ×2 (06:27→18:19)
[2019-12-29] MEDS: BUDESONIDE 0.5MG/2ML NEB HHN SCH ×2 (08:00→09:02)
[2019-12-29] MEDS: PREDNISONE 20MG TABLET PO SCH (08:35)
[2019-12-29] MEDS: ATENOLOL 50 MG TABLET PO SCH ×2 (08:36→21:00)
[2019-12-29] MEDS: DILTIAZEM HCL 180MG CAPSULE CD 24HR PO SCH ×2 (08:36→21:00)
[2019-12-29] MEDS: ENOXAPARIN 60MG/0.6ML SYR SUBCUT SCH ×2 (08:36→21:00)
[2019-12-29] MEDS: FAMOTIDINE 20MG TABLET PO SCH (08:36)
[2019-12-29] MEDS ORDERED: POTASSIUM CHLORIDE 20MEQ TABLET SR PO NR (14:15)
[2019-12-29] MEDS: IPRATROPIUM/ALBUTEROL 0.5-3(2.5)MG/3ML NEB NEB PRN ×2 (16:26→21:48)
[2019-12-29] MEDS ORDERED: DIGOXIN 500MCG/2ML AMP IV SCH (18:00)
[2019-12-30] VITALS (10 sets, daily range): BP systolic 106–122; BP diastolic 49–81
[2019-12-30] MEDS: IPRATROPIUM BROMIDE (0.02%) 0.5MG/2.5ML NEB HHN SCH ×2 (01:26→08:59)
[2019-12-30] MEDS: FUROSEMIDE 40MG/4ML VIAL IVP SCH (06:04)
[2019-12-30 06:16] LABS: BASOPHILS % 0.1 % (0.0-2.0); EOSINOPHILS % 0.1 % (0.0-5.0); HEMATOCRIT. 32.4 % (36.0-48.0); HEMOGLOBIN. 10.2 g/dL (12.0-16.0); LYMPHOCYTES % 8.7 % (20.0-50.0); MEAN CORPUSCULAR HEMOGLOBIN 23.3 pg (28.0-32.0); MEAN CORPUSCULAR VOLUME 73.6 fL (81.0-99.0); MEAN PLATELET VOLUME 9.2 fl (7.4-10.4); MONOCYTES % 6.8 % (2.0-8.0); NEUTROPHILS % 84.3 % (40.0-76.0); PLATELET 268 x1000/uL (130-400); RED CELL DISTRIBUTION WIDTH 17.7 % (11.6-14.6)
[2019-12-30 07:14] LABS: CHLORIDE 98 mEq/L (98-107)
[2019-12-30] MEDS: PREDNISONE 20MG TABLET PO SCH (09:00)
[2019-12-30] MEDS: ATENOLOL 50 MG TABLET PO SCH (09:00)
[2019-12-30] MEDS: FAMOTIDINE 20MG TABLET PO SCH (09:00)
[2019-12-30] MEDS: DILTIAZEM HCL 180MG CAPSULE CD 24HR PO SCH (09:00)
[2019-12-30] MEDS ORDERED: POTASSIUM CHLORIDE 20MEQ TABLET SR PO SCH (14:00)
== END 2019-12-30 18:19 | disposition home or self-care (01) | DRG 193 ==
LOC: ER 14:47 → 5EST 15:00 → EDBEDREQSVC 15:05 → ENRESERV 15:26
PROVIDERS: ADMIT Internal Medicine; ATTEND Internal Medicine
PROC: 5A09357 Assistance with Respiratory Ventilation, Less than 24 Consecutive Hours, Continuous Positive Airway Pressure (ICD-10-PCS; principal; 2019-12-22)
PROC: 5A09357 Assistance with Respiratory Ventilation, Less than 24 Consecutive Hours, Continuous Positive Airway Pressure (ICD-10-PCS; 2019-12-25)
PROC: 5A09357 Assistance with Respiratory Ventilation, Less than 24 Consecutive Hours, Continuous Positive Airway Pressure (ICD-10-PCS; 2019-12-26)
PROC: 5A09357 Assistance with Respiratory Ventilation, Less than 24 Consecutive Hours, Continuous Positive Airway Pressure (ICD-10-PCS; 2019-12-27)
PROC: 5A09357 Assistance with Respiratory Ventilation, Less than 24 Consecutive Hours, Continuous Positive Airway Pressure (ICD-10-PCS; 2019-12-28)
DX: J18.9 Pneumonia, unspecified organism (principal); J96.00 Acute respiratory failure, unspecified whether with hypoxia or hypercapnia; G93.41 Metabolic encephalopathy; I50.21 Acute systolic (congestive) heart failure; J44.1 Chronic obstructive pulmonary disease with (acute) exacerbation; E87.0 Hyperosmolality and hypernatremia; J98.11 Atelectasis; I42.9 Cardiomyopathy, unspecified; J44.0 Chronic obstructive pulmonary disease with (acute) lower respiratory infection; R64 Cachexia; Z68.1 Body mass index [BMI] 19.9 or less, adult; M19.90 Unspecified osteoarthritis, unspecified site; E05.00 Thyrotoxicosis with diffuse goiter without thyrotoxic crisis or storm; D64.9 Anemia, unspecified; I11.0 Hypertensive heart disease with heart failure; I27.20 Pulmonary hypertension, unspecified; I45.10 Unspecified right bundle-branch block; J45.909 Unspecified asthma, uncomplicated; I48.91 Unspecified atrial fibrillation; Z20.828 Contact with and (suspected) exposure to other viral communicable diseases; Z79.01 Long term (current) use of anticoagulants; Z79.899 Other long term (current) drug therapy; Z87.891 Personal history of nicotine dependence; Z99.81 Dependence on supplemental oxygen
CPT/HCPCS: 36415; 36600; 71045; 80048; 80053; 82270; 82375; 82607; 82805; 83540; 83550; 83605; 83735; 83880; 84100; 84436; 84439; 84443; 84480; 84481; 84484; 85025; 93005; 93306; 94003; 94640; 99285; J0456; J1120; J1160; J1200; J1650; J1940; J2405; J2543; J2920; J2930; J3475; J3490; J7060; J7512; J7626; U0003-CS

== ENCOUNTER 2020-01-06 06:34 | Inpatient (IN) | payer MEDICARE ==
[~2020-01-06] VITALS: Ht 162.6 cm; Wt 51.9 kg
[2020-01-06] VITALS (26 sets, daily range): BP systolic 97–136; BP diastolic 55–78
[2020-01-06 07:57] LABS: HEMATOCRIT 30.4 % (36.0-48.0); HEMOGLOBIN 9.5 g/dL (12.0-16.0); MEAN CORPUSCULAR VOLUME 76.5 fL (81.0-99.0); PLATELET 228 x1000/uL (130-400); RED BLOOD CELL COUNT 3.97 mill/uL (4.2-5.4); RED CELL DISTRIBUTION WIDTH 18.1 % (11.6-14.6)
[2020-01-06 07:58] LABS: CHLORIDE 105 mEq/L (98-107)
[2020-01-06 08:03] LABS: PARTIAL THROMBOPLASTIN TIME 29.6 sec (23.4-31.0); PROTHROMBIN TIME 10.8 sec (9.6-11.0)
[2020-01-06] MEDS ORDERED: HEPARIN 1,000 UNITS PREMIX 1,500 ML IV ONE (08:50)
[2020-01-06] MEDS ORDERED: LIDOCAINE HCL 1% 20ML VIAL (Pyxis) INJ ONE ×2 (08:50→08:53)
[2020-01-06] MEDS ORDERED: DOPAMINE 400MG/250ML PREMIX 250 ML IV ONE (10:23)
[2020-01-06] MEDS ORDERED: ATROPINE SULFATE 1MG/10ML SYR IV PRN (13:15)
[2020-01-06] MEDS ORDERED: ACETAMINOPHEN 325MG TABLET PO PRN (13:15)
[2020-01-06] MEDS ORDERED: ONDANSETRON HCL 4MG/2ML INJ IV PRN (13:15)
[2020-01-06 14:03] LABS: BG BASE EXCESS 6.2 mmol/L (-2.0-2.0); BG CARBOXYHEMOGLOBIN 0.3 % (0.5-1.5); BG DEOXYHEMOGLOBIN 0.7 % (0.0-5.0); BG FRACTION INSPIRED OXYGEN 50; BG HCO3 ACT 34.4 mmol/L (22.0-26.0); BG METHEMOGLOBIN 0.4 % (0.0-1.5); BG OXYGEN SATURATION 99.3 % (92.0-98.5); BG OXYHEMOGLOBIN 98.6 % (94.0-97.0); BG PCO2 72.3 mmHg (35.0-45.0); BG PH 7.295 (7.350-7.450); BG PO2 183.3 mmHg (75.0-100.0); BG PRESSURE SUPPORT 10; BG SAMPLE SITE A-LINE; BG TIDAL VOLUME(mL) 500 mL; BG TOTAL HEMOGLOBIN 10.3 g/dL (12.0-18.0); BG VENT MODE VENT - SIMV; BG VENT RATE 10 set
[2020-01-06] MEDS ORDERED: MORPHINE SULFATE 2 MG/ML CPJ (NOT FOR IM USE) IV PRN (14:45)
[2020-01-06] MEDS ORDERED: LORAZEPAM 2MG/ML CPJ IV PRN (14:45)
[2020-01-06] MEDS ORDERED: MIDAZOLAM HCL 100 MG in DEXT 5% WATER 80 ML IV PRN (15:00)
[2020-01-06 16:13] LABS: BG CARBOXYHEMOGLOBIN 0.3 % (0.5-1.5); BG DEOXYHEMOGLOBIN 2.3 % (0.0-5.0); BG FRACTION INSPIRED OXYGEN 35; BG HCO3 ACT 31.7 mmol/L (22.0-26.0); BG METHEMOGLOBIN 0.4 % (0.0-1.5); BG OXYGEN SATURATION 97.7 % (92.0-98.5); BG PCO2 51.9 mmHg (35.0-45.0); BG PH 7.404 (7.350-7.450); BG PO2 97.8 mmHg (75.0-100.0); BG SAMPLE SITE A-LINE; BG TIDAL VOLUME(mL) 500 mL; BG TOTAL HEMOGLOBIN 9.9 g/dL (12.0-18.0); BG VENT MODE VENT - A/C; BG VENT RATE 14 set
[2020-01-06] MEDS: BUDESONIDE 0.5MG/2ML NEB HHN SCH ×2 (16:47→20:16)
[2020-01-06] MEDS: IPRATROPIUM BROMIDE (0.02%) 0.5MG/2.5ML NEB HHN SCH ×2 (16:47→20:16)
[2020-01-06] MEDS: DEXT 5%/0.45% NACL 1000ML 1,000 ML IV SCH (21:03)
[2020-01-07] VITALS (49 sets, daily range): BP systolic 95–173; BP diastolic 46–87
[2020-01-07] MEDS: IPRATROPIUM BROMIDE (0.02%) 0.5MG/2.5ML NEB HHN SCH ×4 (01:58→20:55)
[2020-01-07 06:38] LABS: BASOPHILS % 0.2 % (0.0-2.0); EOSINOPHILS % 0.3 % (0.0-5.0); HEMATOCRIT. 26.2 % (36.0-48.0); HEMOGLOBIN. 8.3 g/dL (12.0-16.0); LYMPHOCYTES % 9.2 % (20.0-50.0); MEAN CORPUSCULAR HEMOGLOBIN 23.8 pg (28.0-32.0); MEAN CORPUSCULAR VOLUME 75.1 fL (81.0-99.0); MEAN PLATELET VOLUME 9.4 fl (7.4-10.4); NEUTROPHILS % 86.3 % (40.0-76.0); PLATELET 193 x1000/uL (130-400); RED BLOOD CELL COUNT 3.49 mill/uL (4.2-5.4); RED CELL DISTRIBUTION WIDTH 17.9 % (11.6-14.6)
[2020-01-07 06:45] LABS: CHLORIDE 106 mEq/L (98-107)
[2020-01-07 07:38] LABS: BG BASE EXCESS 9.3 mmol/L (-2.0-2.0); BG CARBOXYHEMOGLOBIN 0.4 % (0.5-1.5); BG DEOXYHEMOGLOBIN 1.1 % (0.0-5.0); BG FRACTION INSPIRED OXYGEN 35; BG METHEMOGLOBIN 0.4 % (0.0-1.5); BG OXYGEN SATURATION 98.9 % (92.0-98.5); BG OXYHEMOGLOBIN 98.1 % (94.0-97.0); BG PCO2 41.2 mmHg (35.0-45.0); BG PH 7.521 (7.350-7.450); BG PO2 123.7 mmHg (75.0-100.0); BG SAMPLE SITE A-LINE; BG TIDAL VOLUME(mL) 500 mL; BG TOTAL HEMOGLOBIN 8.6 g/dL (12.0-18.0); BG VENT MODE VENT - A/C; BG VENT RATE 14 set
[2020-01-07] MEDS: BUDESONIDE 0.5MG/2ML NEB HHN SCH ×2 (08:43→20:56)
[2020-01-07] MEDS: AMLODIPINE 2.5MG TABLET PO SCH (09:00)
[2020-01-07 09:58] LABS: PHOSPHORUS 1.5 mg/dL (2.5-4.9)
[2020-01-07] MEDS: DEXT 5%/0.45% NACL 1000ML 1,000 ML IV SCH ×2 (10:05→23:13)
[2020-01-08] VITALS (54 sets, daily range): BP systolic 103–177; BP diastolic 42–103
[2020-01-08] MEDS: IPRATROPIUM BROMIDE (0.02%) 0.5MG/2.5ML NEB HHN SCH ×4 (01:54→20:47)
[2020-01-08] MEDS ORDERED: HYDRALAZINE 20MG/ML VIAL IV NR (05:45)
[2020-01-08 06:38] LABS: BASOPHILS % 0.4 % (0.0-2.0); EOSINOPHILS % 1.1 % (0.0-5.0); HEMATOCRIT. 24.9 % (36.0-48.0); HEMOGLOBIN. 7.9 g/dL (12.0-16.0); LYMPHOCYTES % 10.5 % (20.0-50.0); MEAN CORPUSCULAR HEMOGLOBIN 23.7 pg (28.0-32.0); MEAN CORPUSCULAR VOLUME 74.4 fL (81.0-99.0); MEAN PLATELET VOLUME 9.4 fl (7.4-10.4); MONOCYTES % 3.5 % (2.0-8.0); NEUTROPHILS % 84.5 % (40.0-76.0); PLATELET 168 x1000/uL (130-400); RED BLOOD CELL COUNT 3.35 mill/uL (4.2-5.4); RED CELL DISTRIBUTION WIDTH 17.9 % (11.6-14.6)
[2020-01-08 06:49] LABS: CHLORIDE 106 mEq/L (98-107)
[2020-01-08 07:42] LABS: PHOSPHORUS 1.8 mg/dL (2.5-4.9)
[2020-01-08] MEDS: BUDESONIDE 0.5MG/2ML NEB HHN SCH ×2 (08:25→20:47)
[2020-01-08] MEDS: AMLODIPINE 2.5MG TABLET PO SCH (09:37)
[2020-01-08] MEDS ORDERED: POTASSIUM PHOS,M-BASIC-D-BASIC 20 MMOL in DEXT 5% WATER 243.3333 ML IV SCH (12:00)
[2020-01-08] MEDS: DEXT 5%/0.45% NACL 1000ML 1,000 ML IV SCH (12:43)
[2020-01-08] MEDS: DILTIAZEM HCL 30MG TABLET PO SCH ×2 (14:47→21:48)
[2020-01-08] MEDS: IPRATROPIUM BROMIDE (0.02%) 0.5MG/2.5ML NEB HHN PRN (20:14)
[2020-01-09] VITALS (27 sets, daily range): BP systolic 112–154; BP diastolic 48–93
[2020-01-09] MEDS: DEXT 5%/0.45% NACL 1000ML 1,000 ML IV SCH (01:18)
[2020-01-09] MEDS: IPRATROPIUM BROMIDE (0.02%) 0.5MG/2.5ML NEB HHN SCH ×4 (02:25→19:49)
[2020-01-09 06:57] LABS: CHLORIDE 109 mEq/L (98-107)
[2020-01-09 07:01] LABS: HEMATOCRIT 27.2 % (36.0-48.0); HEMOGLOBIN 8.6 g/dL (12.0-16.0); MEAN CORPUSCULAR HEMOGLOBIN 23.7 pg (28.0-32.0); MEAN CORPUSCULAR VOLUME 75.3 fL (81.0-99.0); PLATELET 165 x1000/uL (130-400); RED BLOOD CELL COUNT 3.61 mill/uL (4.2-5.4)
[2020-01-09] MEDS: BUDESONIDE 0.5MG/2ML NEB HHN SCH (08:19)
[2020-01-09] MEDS: CEFTRIAXONE 1 G PREMIX 50 ML IV SCH (11:00)
[2020-01-09] MEDS: DILTIAZEM HCL 30MG TABLET PO SCH ×2 (14:42→21:50)
[2020-01-10] VITALS (12 sets, daily range): BP systolic 101–153; BP diastolic 63–109
[2020-01-10] MEDS: IPRATROPIUM BROMIDE (0.02%) 0.5MG/2.5ML NEB HHN SCH ×5 (00:51→21:54)
[2020-01-10] MEDS: DILTIAZEM HCL 30MG TABLET PO SCH ×3 (06:28→22:28)
[2020-01-10] MEDS: CEFTRIAXONE 1 G PREMIX 50 ML IV SCH (11:34)
[2020-01-11] VITALS (18 sets, daily range): BP systolic 109–178; BP diastolic 58–101
[2020-01-11] MEDS: IPRATROPIUM BROMIDE (0.02%) 0.5MG/2.5ML NEB HHN SCH ×2 (05:13→21:24)
[2020-01-11] MEDS: DILTIAZEM HCL 30MG TABLET PO SCH ×2 (06:14→14:00)
[2020-01-11] MEDS: IPRATROPIUM BROMIDE (0.02%) 0.5MG/2.5ML NEB HHN PRN (09:09)
[2020-01-11] MEDS: CEFTRIAXONE 1 G PREMIX 50 ML IV SCH (10:03)
[2020-01-11] MEDS ORDERED: DILTIAZEM HCL 125 MG in DEXT 5% WATER 100 ML IV SCH (10:30)
[2020-01-11 10:36] LABS: BG BASE EXCESS 11.8 mmol/L (-2.0-2.0); BG CARBOXYHEMOGLOBIN 0.3 % (0.5-1.5); BG DEOXYHEMOGLOBIN 3.1 % (0.0-5.0); BG FRACTION INSPIRED OXYGEN 36; BG METHEMOGLOBIN 0.3 % (0.0-1.5); BG OXYGEN SATURATION 96.9 % (92.0-98.5); BG OXYHEMOGLOBIN 96.3 % (94.0-97.0); BG PCO2 78.1 mmHg (35.0-45.0); BG PH 7.327 (7.350-7.450); BG PO2 92.4 mmHg (75.0-100.0); BG SAMPLE SITE RIGHT RADIAL; BG TOTAL HEMOGLOBIN 9.7 g/dL (12.0-18.0); BG VENT MODE NASAL CANNULA
[2020-01-11 14:26] LABS: T4 FREE 0.93 ng/dL (0.76-1.46)
[2020-01-11] MEDS: METHYLPREDNISOLONE SOD SUCC 40 MG/ML VIAL IV SCH ×2 (14:37→22:30)
[2020-01-11] MEDS ORDERED: DIPHENHYDRAMINE 50MG/ML VIAL IV PRN (18:00)
[2020-01-12] VITALS (15 sets, daily range): BP systolic 107–161; BP diastolic 46–89
[2020-01-12] MEDS: IPRATROPIUM BROMIDE (0.02%) 0.5MG/2.5ML NEB HHN SCH ×4 (03:15→20:26)
[2020-01-12] MEDS: METHYLPREDNISOLONE SOD SUCC 40 MG/ML VIAL IV SCH ×3 (06:29→21:43)
[2020-01-12 06:56] LABS: HEMATOCRIT. 32.2 % (36.0-48.0); MEAN CORPUSCULAR HEMOGLOBIN 22.9 pg (28.0-32.0); MEAN CORPUSCULAR VOLUME 73.9 fL (81.0-99.0); MEAN PLATELET VOLUME 8.8 fl (7.4-10.4); PLATELET 164 x1000/uL (130-400); RED BLOOD CELL COUNT 4.36 mill/uL (4.2-5.4); RED CELL DISTRIBUTION WIDTH 19.3 % (11.6-14.6)
[2020-01-12] MEDS ORDERED: FUROSEMIDE 40MG/4ML VIAL IVP NR (08:00)
[2020-01-12] MEDS: CEFTRIAXONE 1 G PREMIX 50 ML IV SCH (12:08)
[2020-01-12 13:22] LABS: PLATELET ESTIMATE NORMAL
[2020-01-12 14:39] LABS: BG BASE EXCESS 13.9 mmol/L (-2.0-2.0); BG BILEVEL POS AIRWAY PRESSURE 15/5; BG CARBOXYHEMOGLOBIN 0.3 % (0.5-1.5); BG DEOXYHEMOGLOBIN 1.9 % (0.0-5.0); BG FRACTION INSPIRED OXYGEN 40; BG HCO3 ACT 41.7 mmol/L (22.0-26.0); BG METHEMOGLOBIN 0.3 % (0.0-1.5); BG OXYGEN SATURATION 98.1 % (92.0-98.5); BG OXYHEMOGLOBIN 97.5 % (94.0-97.0); BG PCO2 72.4 mmHg (35.0-45.0); BG PH 7.378 (7.350-7.450); BG PO2 107.3 mmHg (75.0-100.0); BG SAMPLE SITE RIGHT BRACHIAL; BG TOTAL HEMOGLOBIN 10.9 g/dL (12.0-18.0); BG VENT MODE MASK - BIPAP
[2020-01-12] MEDS: DILTIAZEM HCL 125 MG in DEXT 5% WATER 100 ML IV SCH (16:48)
[2020-01-13] VITALS (10 sets, daily range): BP systolic 116–154; BP diastolic 64–78
[2020-01-13] MEDS: IPRATROPIUM BROMIDE (0.02%) 0.5MG/2.5ML NEB HHN SCH ×4 (02:15→20:14)
[2020-01-13] MEDS: METHYLPREDNISOLONE SOD SUCC 40 MG/ML VIAL IV SCH ×2 (05:59→19:22)
[2020-01-13 06:59] LABS: CHLORIDE 102 mEq/L (98-107)
[2020-01-13 07:07] LABS: PHOSPHORUS 2.1 mg/dL (2.5-4.9)
[2020-01-13 07:15] LABS: HEMATOCRIT. 29.7 % (36.0-48.0); HEMOGLOBIN. 9.4 g/dL (12.0-16.0); MEAN CORPUSCULAR HEMOGLOBIN 23.2 pg (28.0-32.0); MEAN CORPUSCULAR VOLUME 73.5 fL (81.0-99.0); MEAN PLATELET VOLUME 9.3 fl (7.4-10.4); PLATELET 177 x1000/uL (130-400); RED BLOOD CELL COUNT 4.05 mill/uL (4.2-5.4); RED CELL DISTRIBUTION WIDTH 18.7 % (11.6-14.6)
[2020-01-13] MEDS: DILTIAZEM HCL 125 MG in DEXT 5% WATER 100 ML IV SCH (11:30)
[2020-01-13] MEDS: CEFTRIAXONE 1 G PREMIX 50 ML IV SCH (12:32)
[2020-01-13] MEDS ORDERED: GENTAMICIN SULF 40MG/ML 2ML VIAL ONE (12:42)
[2020-01-13] MEDS ORDERED: CEFAZOLIN 1000MG PREMIX 100 ML IV ONE (12:42)
[2020-01-13] MEDS ORDERED: LIDOCAINE HCL 1% 20ML VIAL (Pyxis) INJ ONE (12:43)
[2020-01-13] MEDS ORDERED: GENTAMICIN/NS IRRIGATION 500 ML IR ONE (12:43)
[2020-01-13 14:04] LABS: NUCLEATED RED BLOOD CELLS 1 /100 WBC; PLATELET ESTIMATE NORMAL
[2020-01-14] VITALS (11 sets, daily range): BP systolic 105–165; BP diastolic 64–96
[2020-01-14] MEDS: IPRATROPIUM BROMIDE (0.02%) 0.5MG/2.5ML NEB HHN SCH ×4 (01:34→20:14)
[2020-01-14] MEDS: METHYLPREDNISOLONE SOD SUCC 40 MG/ML VIAL IV SCH ×3 (02:48→18:08)
[2020-01-14] MEDS ORDERED: CEFTRIAXONE 1,000 MG in DEXTROSE 5% WATER 50 ML IV SCH (11:00)
[2020-01-14] MEDS ORDERED: FENTANYL CITRATE/PF 50MCG/ML 2ML VIAL ONE (11:39)
[2020-01-14] MEDS ORDERED: DIPHENHYDRAMINE 50MG/ML VIAL ONE (11:41)
[2020-01-14] MEDS ORDERED: HYDRALAZINE 20MG/ML VIAL ONE (13:02)
[2020-01-14] MEDS ORDERED: HYDROCODONE/ACETAMINOPHEN 5/325MG TABLET PO PRN (13:30)
[2020-01-14] MEDS: DILTIAZEM HCL 125 MG in DEXT 5% WATER 100 ML IV SCH (13:50)
[2020-01-14] MEDS: ATENOLOL 50 MG TABLET PO SCH (14:06)
[2020-01-14] MEDS: DILTIAZEM HCL 30MG TABLET PO SCH ×2 (18:09→23:21)
[2020-01-15] VITALS (13 sets, daily range): BP systolic 98–128; BP diastolic 52–97
[2020-01-15] MEDS: METHYLPREDNISOLONE SOD SUCC 40 MG/ML VIAL IV SCH ×3 (01:28→17:10)
[2020-01-15] MEDS: IPRATROPIUM BROMIDE (0.02%) 0.5MG/2.5ML NEB HHN SCH ×4 (01:53→20:38)
[2020-01-15] MEDS: DILTIAZEM HCL 30MG TABLET PO SCH ×3 (06:47→17:10)
[2020-01-15 06:57] LABS: CHLORIDE 103 mEq/L (98-107)
[2020-01-15 07:05] LABS: HEMATOCRIT. 30.8 % (36.0-48.0); HEMOGLOBIN. 9.6 g/dL (12.0-16.0); MEAN CORPUSCULAR HEMOGLOBIN 23.1 pg (28.0-32.0); MEAN CORPUSCULAR VOLUME 73.9 fL (81.0-99.0); MEAN PLATELET VOLUME 9.1 fl (7.4-10.4); PLATELET 201 x1000/uL (130-400); RED BLOOD CELL COUNT 4.16 mill/uL (4.2-5.4); RED CELL DISTRIBUTION WIDTH 18.6 % (11.6-14.6)
[2020-01-15] MEDS: ATENOLOL 50 MG TABLET PO SCH (08:21)
[2020-01-15 21:54] LABS: PLATELET ESTIMATE NORMAL
[2020-01-16] VITALS (11 sets, daily range): BP systolic 105–149; BP diastolic 61–108
[2020-01-16] MEDS: DILTIAZEM HCL 30MG TABLET PO SCH ×4 (00:17→17:01)
[2020-01-16] MEDS: METHYLPREDNISOLONE SOD SUCC 40 MG/ML VIAL IV SCH ×3 (01:32→17:00)
[2020-01-16] MEDS: IPRATROPIUM BROMIDE (0.02%) 0.5MG/2.5ML NEB HHN SCH ×4 (01:45→20:43)
[2020-01-16] MEDS: ATENOLOL 50 MG TABLET PO SCH ×2 (08:06→17:01)
[2020-01-17] VITALS (13 sets, daily range): BP systolic 102–144; BP diastolic 26–95
[2020-01-17] MEDS: DILTIAZEM HCL 30MG TABLET PO SCH ×4 (00:20→18:00)
[2020-01-17] MEDS: IPRATROPIUM BROMIDE (0.02%) 0.5MG/2.5ML NEB HHN SCH ×4 (00:48→20:22)
[2020-01-17] MEDS: METHYLPREDNISOLONE SOD SUCC 40 MG/ML VIAL IV SCH ×3 (02:17→15:46)
[2020-01-17] MEDS: ATENOLOL 50 MG TABLET PO SCH ×2 (06:04→18:00)
[2020-01-17 10:57] LABS: HEMATOCRIT 34.9 % (36.0-48.0); HEMOGLOBIN 10.5 g/dL (12.0-16.0); MEAN CORPUSCULAR HEMOGLOBIN 23.1 pg (28.0-32.0); MEAN CORPUSCULAR VOLUME 76.5 fL (81.0-99.0); PLATELET 274 x1000/uL (130-400); RED BLOOD CELL COUNT 4.56 mill/uL (4.2-5.4); RED CELL DISTRIBUTION WIDTH 18.9 % (11.6-14.6)
[2020-01-17 11:05] LABS: CHLORIDE 102 mEq/L (98-107)
[2020-01-17] MEDS ORDERED: DILT30TA38 PO (11:24)
[2020-01-17] MEDS ORDERED: ATEN-176 PO (11:25)
[2020-01-17] MEDS: IPRATROPIUM BROMIDE (0.02%) 0.5MG/2.5ML NEB HHN PRN (16:17)
[2020-01-17 17:33] LABS: BG BILEVEL POS AIRWAY PRESSURE 15/5; BG CARBOXYHEMOGLOBIN 0.5 % (0.5-1.5); BG DEOXYHEMOGLOBIN 8.9 % (0.0-5.0); BG FRACTION INSPIRED OXYGEN 30; BG HCO3 ACT 41.6 mmol/L (22.0-26.0); BG METHEMOGLOBIN 0.4 % (0.0-1.5); BG OXYHEMOGLOBIN 90.2 % (94.0-97.0); BG PCO2 87.6 mmHg (35.0-45.0); BG PH 7.294 (7.350-7.450); BG PO2 63.9 mmHg (75.0-100.0); BG SAMPLE SITE RIGHT BRACHIAL; BG TOTAL HEMOGLOBIN 11.2 g/dL (12.0-18.0); BG VENT MODE MASK - BIPAP; BG VENT RATE 16 set
[2020-01-17 18:54] LABS: BG BASE EXCESS 11.4 mmol/L (-2.0-2.0); BG BILEVEL POS AIRWAY PRESSURE 15/5; BG CARBOXYHEMOGLOBIN 0.4 % (0.5-1.5); BG DEOXYHEMOGLOBIN 5.6 % (0.0-5.0); BG FRACTION INSPIRED OXYGEN 35; BG HCO3 ACT 40.6 mmol/L (22.0-26.0); BG METHEMOGLOBIN 0.4 % (0.0-1.5); BG OXYGEN SATURATION 94.4 % (92.0-98.5); BG OXYHEMOGLOBIN 93.6 % (94.0-97.0); BG PCO2 84.6 mmHg (35.0-45.0); BG PH 7.299 (7.350-7.450); BG PO2 75.9 mmHg (75.0-100.0); BG SAMPLE SITE RIGHT RADIAL; BG VENT MODE MASK - BIPAP; BG VENT RATE 22 set
[2020-01-17] MEDS: DILTIAZEM HCL 125 MG in DEXT 5% WATER 100 ML IV PRN (21:09)
[2020-01-17 21:10] LABS: BG BASE EXCESS 6.1 mmol/L (-2.0-2.0); BG BILEVEL POS AIRWAY PRESSURE 20/5; BG CARBOXYHEMOGLOBIN 0.1 % (0.5-1.5); BG DEOXYHEMOGLOBIN 6.1 % (0.0-5.0); BG FRACTION INSPIRED OXYGEN 30; BG HCO3 ACT 33.7 mmol/L (22.0-26.0); BG METHEMOGLOBIN 0.2 % (0.0-1.5); BG OXYGEN SATURATION 93.9 % (92.0-98.5); BG OXYHEMOGLOBIN 93.6 % (94.0-97.0); BG PCO2 66.2 mmHg (35.0-45.0); BG PH 7.325 (7.350-7.450); BG PO2 69.6 mmHg (75.0-100.0); BG SAMPLE SITE LEFT RADIAL; BG TOTAL HEMOGLOBIN 10.7 g/dL (12.0-18.0); BG VENT MODE MASK - BIPAP
[2020-01-17] MEDS: DILTIAZEM HCL 60MG TABLET PO SCH (23:54)
[2020-01-18] VITALS (12 sets, daily range): BP systolic 104–145; BP diastolic 69–111
[2020-01-18] MEDS: METHYLPREDNISOLONE SOD SUCC 40 MG/ML VIAL IV SCH ×3 (01:33→17:39)
[2020-01-18] MEDS: IPRATROPIUM BROMIDE (0.02%) 0.5MG/2.5ML NEB HHN SCH ×3 (02:08→20:43)
[2020-01-18] MEDS: DILTIAZEM HCL 60MG TABLET PO SCH ×4 (06:00→23:58)
[2020-01-18] MEDS: DILTIAZEM HCL 125 MG in DEXT 5% WATER 100 ML IV PRN (08:04)
[2020-01-18 08:39] LABS: BG BASE EXCESS 7.6 mmol/L (-2.0-2.0); BG BILEVEL POS AIRWAY PRESSURE 20/5; BG CARBOXYHEMOGLOBIN 0.3 % (0.5-1.5); BG DEOXYHEMOGLOBIN 4.1 % (0.0-5.0); BG FRACTION INSPIRED OXYGEN 35; BG HCO3 ACT 34.6 mmol/L (22.0-26.0); BG METHEMOGLOBIN 0.2 % (0.0-1.5); BG OXYGEN SATURATION 95.9 % (92.0-98.5); BG OXYHEMOGLOBIN 95.4 % (94.0-97.0); BG PCO2 60.6 mmHg (35.0-45.0); BG PH 7.374 (7.350-7.450); BG PO2 78.5 mmHg (75.0-100.0); BG SAMPLE SITE RIGHT RADIAL; BG TOTAL HEMOGLOBIN 12.1 g/dL (12.0-18.0); BG VENT MODE MASK - BIPAP
[2020-01-18] MEDS ORDERED: DILTIAZEM HCL 30MG TABLET PO SCH (18:00)
[2020-01-19] VITALS (13 sets, daily range): BP systolic 98–184; BP diastolic 52–115
[2020-01-19] MEDS: IPRATROPIUM BROMIDE (0.02%) 0.5MG/2.5ML NEB HHN SCH ×4 (01:17→12:51)
[2020-01-19] MEDS: METHYLPREDNISOLONE SOD SUCC 40 MG/ML VIAL IV SCH ×3 (02:33→17:31)
[2020-01-19] MEDS: DILTIAZEM HCL 60MG TABLET PO SCH ×3 (05:49→17:31)
[2020-01-19] MEDS ORDERED: CLONIDINE 0.1MG TABLET PO PRN (12:45)
[2020-01-20] VITALS (12 sets, daily range): BP systolic 102–170; BP diastolic 55–91
[2020-01-20] MEDS: IPRATROPIUM BROMIDE (0.02%) 0.5MG/2.5ML NEB HHN SCH ×4 (01:15→21:19)
[2020-01-20] MEDS: METHYLPREDNISOLONE SOD SUCC 40 MG/ML VIAL IV SCH ×3 (02:20→18:45)
[2020-01-20] MEDS: DILTIAZEM HCL 60MG TABLET PO SCH ×2 (06:41)
[2020-01-20] MEDS ORDERED: DILTIAZEM HCL 30MG TABLET PO SCH ×2 (12:15→13:00)
[2020-01-20] MEDS: DILTIAZEM HCL 90MG TABLET PO SCH (18:46)
[2020-01-21] VITALS (11 sets, daily range): BP systolic 107–141; BP diastolic 52–86
[2020-01-21] MEDS: DILTIAZEM HCL 90MG TABLET PO SCH ×4 (00:12→18:58)
[2020-01-21] MEDS: IPRATROPIUM BROMIDE (0.02%) 0.5MG/2.5ML NEB HHN SCH ×3 (02:03→12:58)
[2020-01-21] MEDS: METHYLPREDNISOLONE SOD SUCC 40 MG/ML VIAL IV SCH ×3 (02:56→18:58)
== END 2020-01-21 20:15 | DRG 853 ==
LOC: CCL 06:34 → CVICU 06:35 → SUPCPDRO 13:36 → 3WST 01-09 13:16
PROVIDERS: ADMIT Internal Medicine Clinical Cardiac Electrophysiology; ATTEND Internal Medicine Clinical Cardiac Electrophysiology
PROC: 5A1945Z Respiratory Ventilation, 24-96 Consecutive Hours (ICD-10-PCS; principal; 2020-01-06)
PROC: 0BH17EZ Insertion of Endotracheal Airway into Trachea, Via Natural or Artificial Opening (ICD-10-PCS; 2020-01-06)
PROC: 30233N1 Transfusion of Nonautologous Red Blood Cells into Peripheral Vein, Percutaneous Approach (ICD-10-PCS; 2020-01-11)
PROC: 5A09357 Assistance with Respiratory Ventilation, Less than 24 Consecutive Hours, Continuous Positive Airway Pressure (ICD-10-PCS; 2020-01-11)
PROC: 5A09357 Assistance with Respiratory Ventilation, Less than 24 Consecutive Hours, Continuous Positive Airway Pressure (ICD-10-PCS; 2020-01-13)
PROC: 02583ZZ Destruction of Conduction Mechanism, Percutaneous Approach (ICD-10-PCS; 2020-01-14)
PROC: 4A0234Z Measurement of Cardiac Electrical Activity, Percutaneous Approach (ICD-10-PCS; 2020-01-14)
PROC: 02H63JZ Insertion of Pacemaker Lead into Right Atrium, Percutaneous Approach (ICD-10-PCS; 2020-01-14)
PROC: 02HK3JZ Insertion of Pacemaker Lead into Right Ventricle, Percutaneous Approach (ICD-10-PCS; 2020-01-14)
PROC: 0JH606Z Insertion of Pacemaker, Dual Chamber into Chest Subcutaneous Tissue and Fascia, Open Approach (ICD-10-PCS; 2020-01-14)
PROC: B51V1ZZ Fluoroscopy of Other Veins using Low Osmolar Contrast (ICD-10-PCS; 2020-01-14)
PROC: 5A09357 Assistance with Respiratory Ventilation, Less than 24 Consecutive Hours, Continuous Positive Airway Pressure (ICD-10-PCS; 2020-01-15)
PROC: 5A09357 Assistance with Respiratory Ventilation, Less than 24 Consecutive Hours, Continuous Positive Airway Pressure (ICD-10-PCS; 2020-01-17)
PROC: 5A09357 Assistance with Respiratory Ventilation, Less than 24 Consecutive Hours, Continuous Positive Airway Pressure (ICD-10-PCS; 2020-01-18)
PROC: 5A09357 Assistance with Respiratory Ventilation, Less than 24 Consecutive Hours, Continuous Positive Airway Pressure (ICD-10-PCS; 2020-01-19)
PROC: 5A09357 Assistance with Respiratory Ventilation, Less than 24 Consecutive Hours, Continuous Positive Airway Pressure (ICD-10-PCS; 2020-01-20)
PROC: 5A09357 Assistance with Respiratory Ventilation, Less than 24 Consecutive Hours, Continuous Positive Airway Pressure (ICD-10-PCS; 2020-01-21)
DX: A41.59 Other Gram-negative sepsis (principal); J15.8 Pneumonia due to other specified bacteria; J96.02 Acute respiratory failure with hypercapnia; I48.92 Unspecified atrial flutter; I50.22 Chronic systolic (congestive) heart failure; I27.20 Pulmonary hypertension, unspecified; I48.91 Unspecified atrial fibrillation; I11.0 Hypertensive heart disease with heart failure; I44.30 Unspecified atrioventricular block; R00.1 Bradycardia, unspecified; F41.9 Anxiety disorder, unspecified; E05.00 Thyrotoxicosis with diffuse goiter without thyrotoxic crisis or storm; Z20.828 Contact with and (suspected) exposure to other viral communicable diseases; J44.9 Chronic obstructive pulmonary disease, unspecified; Z87.891 Personal history of nicotine dependence; Z99.81 Dependence on supplemental oxygen; Z78.1 Physical restraint status; Z79.899 Other long term (current) drug therapy
CPT/HCPCS: 33208; 36415; 36600; 71045; 75820; 80048; 82375; 82805; 83735; 84100; 84439; 84443; 84481; 85025; 85027; 86850; 86900; 86920; 87070; 87077; 87186; 87635; 92610; 93005; 93613; 93621; 93653; 93662; 94002; 94003; 94640; 94660; A4216; C1730; C1731; C1732; C1759; C1785; C1893; C1898; J0360; J0690; J0696; J1200; J1265; J1580; J1644; J1720; J1940; J2250; J2370; J2405; J2704; J2920; J3010; J3105; J3490; J7060; J7626; P9016